=== PATIENT | male | born 1965 | race Caucasian/White ===

== ENCOUNTER 2024-11-14 08:04 | Outpatient (CLI) | payer OTHER, SELFPAY ==
--- NOTE | ~2024-11-14 | US_ITS ---
US abdomen limited INDICATION: Abnormal liver function tests PROCEDURE: Realtime right upper abdominal ultrasound. COMPARISON: No prior studies for comparison. FINDINGS: The pancreas is normal without focal mass or pancreatic ductal dilation. Liver echotexture is increased throughout, consistent with fatty infiltration. Liver is enlarged measuring 17.1 cm. T here is normal directional flow in the portal vein. Gallbladder is surgically absent. Common bile duct measures 6 mm. No sonographic Edgar's sign. IMPRESSION: 1: Hepatomegaly with fatty infiltration of the liver. Reviewed, dictated and finalized at location A.
--- OUTSIDE RECORDS SUMMARY | 2024-11-14 08:12 | XMS_ITS | Clinical Summary ---
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 Gender Identity Not on file Sexual Orientation Not on file Plan of Treatment Health Maintenance Due Date Last Done Comments Hepatitis C Virus (HCV) Screening 1965 TdaP Immunization 1965 Hepatitis B Immunization (1 of 3 - 19+ 3-dose series) 12/25/1983 Colonoscopy 2009 Colorectal Cancer Screening 2009 Cologuard 2014 Immunochemical Fecal Occult Blood 2014 Pneumococcal Immunization (5 0+ years) (1 of 1 - PCV) 2014 Zoster Immunization (1 of 2) 2014 PSA Discussion 12/25/2019 Influenza Immunization (#1) 2024 SARS-COV-2 Immunization ( season) 2024 06/23/2021, 10/24/2020 Respiratory Syncytial Virus (RSV) Immunization (Adult) (1 - 1-dose 75+ series) 12/25/2039 Meningococcal Immunization (ACWY) Aged Out No longer eligible b ased on patient's age to complete this topic Pneumococcal Immunization Combined Aged Out No longer eligible b ased on patient's age to complete this topic Rotavirus Immunization Aged Out No lo nger eligible based on patient's age to complete this topic
--- OUTSIDE RECORDS SUMMARY | 2024-11-14 08:12 | XMS_ITS | Clinical Summary ---
Author Organization [facility] Address [address] [place] [address] Care Team Providers Care Tumbling And Rolling Supervisor Name Role Phone None, Provider MD Primary Care Provider Unavaila ble Allergies No known active allergies Medications fluticasone propionate (FLONASE ALLERGY RELIEF) 50 MCG/ACT nasal spray 2 sprays by Each Nostril route daily. 0.001 g 12/21/2018 Active lidocaine viscous 2 % solution Take 5 ml of solution and dilute in 5 ml of water. Swish, gargle and spit in that order. DO NOT SWALLOW 100 mL 12/21/2018 Active Social History Tobacco Use Types Packs/Day Years Used Date Smoking Tobacco: Never Smokeless Tobacco: Never Alcohol Use Standard Drinks/Week Comments Yes 0 (1 standard drink = 0.6 oz pur e alcohol) socially Sex and Gender Information Value Date Recorded Sex Assigned at Not on file Legal Sex Male 7:01 PM CDT Gender Identity Not on file Sexual Orientation Not on file Last Filed Vital Signs Vital Sign Reading Time Taken Comments Blood Pressure 139/90 12/21/2018 5:25 PM CDT Pulse 102 12/21/2018 5:25 PM CDT Temperature 36.3 C (97.3 F) 12/21/2018 5:25 PM CDT Respiratory Rate 17 12/21/2018 5:25 PM CDT Oxygen Saturation 100% 12/21/2018 5:25 PM CDT Inhaled Oxygen Concentration - - Weight 111.1 kg (245 lb) 12/21/2018 3:30 PM CDT Height 180.3 cm (5' 11 ) 12/21/2018 3:30 PM CDT Body Mass Index 34.17 12/21/2018 3:30 PM CDT Plan of Treatment Health Maintenance Due Date Last Done Comments Colorectal Cancer Screening Colonoscopy (10 Years) 1964 Annual Physical 12/25/1967 Hepatitis C 1982 DTaP, Tdap and Td Vaccines ( 1 - Tdap) 12/25/1983 Zoster Vaccines (1 of 2) 2014 COVID-19 Vaccine (1 - 2023-2 5 season) 2024 Influenza Adult (#1) 2024 Meningococcal B Vaccine Aged Out No l onger eligible based on patient's age to complete this topic Meningococcal Vaccine Aged Out No maru jimmy eligible based on patient's age to complete this topic Pneumococcal Vaccine: Pediat rics (0 to 5 Years) and At-Risk Patients (6 to 64 Years) Aged Out No longer eligible b ased on patient's age to complete this topic RSV Immunizations Under 20 Months Aged Out No longer eligible based on patient's age to complete this topic Insurance [facility] Care Teams Tumbling And Rolling Supervisor Relationship Specialty Start Date End Date None, Provider, PCP - General 12/21/18
== END 2024-11-14 08:05 | disposition home or self-care (01) ==
PROVIDERS: PCP Internal Medicine; Visit Provider Internal Medicine
DX: R94.5 Abnormal results of liver function studies (principal); K76.0 Fatty (change of) liver, not elsewhere classified
CPT/HCPCS: 76705

== ENCOUNTER 2025-01-02 00:19 | Day surgery (SDC) | payer OTHER, SELFPAY ==
[2024-12-26 09:20] VITALS: BMI 32.2
--- OUTSIDE RECORDS SUMMARY | 2025-01-02 00:22 | XMS_ITS | Clinical Summary ---
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
--- OUTSIDE RECORDS SUMMARY | 2025-01-02 00:23 | XMS_ITS | Clinical Summary ---
Author Organization [facility] Address [address] [place] [address] Care Team Providers Care Tire Service Supervisor Name Role Phone None, Provider MD [...] Td Vaccines ( 1 - Tdap) 12/25/1983 Pneumococcal Vaccine: 50+ Ye ars (1 of 1 - PCV) 2014 Zoster Vaccines (1 of 2) 2014 COVID-19 Vaccine (1 - 2023-2 5 season) 2024 Meningococcal B Vaccine Aged Out No l onger eligible based on patient's age to complete this topic Meningococcal Vaccine Aged Out No maru jimmy eligible based on patient's age to complete this topic RSV Immunizations Under 20 Months Aged Out No longer eligible based on patient's age to complete this topic Insurance [facility] Care Teams Tire Service Supervisor Relationship Specialty Start Date End Date None, Provider, PCP - General 12/21/18
[2025-01-02 08:42] VITALS: BP 130/89; PULSE 82; RESP 18; TEMP 36.6; O2SAT 99; BMI 31.5
--- NOTE | 2025-01-02 08:56 | WPDANESEPPF ---
Anes - Initial Pre Proc Eval Procedure: Operation Date: 01/02/25 10:00 Proposed Procedures p Esophagogastroduodenoscopy & Colonoscopy - Kenton Jain MD Date/Time: 01/02/25 08:56 Surgeon: Kenton Jain MD Pre Op Diagnosis: malignant neoplasm of colon Patient Data Age: 59 Gender: M Height: 1.8 m Weight: 102.5 kg Last Vital Signs Temp 36.6 C 01/02/25 08:42 Pulse 82 01/02/25 08:42 Resp 18 01/02/25 08:42 BP 130/89 01/02/25 08:42 Pulse Ox 99 01/02/25 08:42 O2 Del Method Room Air 01/02/25 08:42 Allergies Allergy/AdvReac Type Severity Reaction Status Date / Time No Known Allergies Allergy Verified 01/02/25 08:51 Home Medications Medication Instructions Recorded Confirmed Type diphenhydramine HCl 25 mg capsule 25 mg PO Q6H PRN allergy symptoms 01/27/21 01/02/25 History (Benadryl) esomeprazole magnesium 20 mg 20 mg PO DAILY 01/27/21 01/02/25 History capsule,delayed release (Nexium) Patient hx anesthesia problems: none Family hx anesthesia problems: none Results Review: All pre-operative results and documents have been reviewed as part of the pre-operative evaluation. [facility] Past Medical History Medical History Dyslipidemia Mild intermittent asthma in adult without complication Microscopic hematuria BMI 33.0-33.9,adult Hypertension Elevated fasting glucose BMI 34.0-34.9,adult B12 deficiency Elevated blood pressure reading in office without diagnosis of hypertension Hyperlipidemia BMI 31.0-31.9,adult Family history of pancreatic cancer Encounter to establish care Gout Hernia Acid reflux Gallbladder disorder Asthma Seasonal allergies Surgical History Surgical History History of cholecystectomy Family History Family History Father Diabetes mellitus Enlarged prostate Mother Diabetes mellitus Pancreatic cancer Sibling Diabetes mellitus Grandparent AA (alcohol abuse) Grandparent Asthma Social History Social History Smoking status: Former smoker Tobacco type: cigarettes Alcohol intake: former Substance use: never Substance use type: does not use Anes - Eval Final PreProcedure Day of Procedure 01/02/25 08:56 Patient weight: obese Heart: regular rate and rhythm Lungs: clear to auscultation Airway: Mallampati scale class II Neurological: alert and oriented Last oral intake: >/= 8 hours ASA classification: III Emergent: no Anesthetic plan: proceed Anesthesia type and monitoring: general GIVS and standard monitoring Results Review: All pre-operative results and documents have been reviewed as part of the pre-operative evaluation. Informed Consent: The patient's anesthetic plan and its attendant risks and benefits were discussed with the patient/family/POA. Questions were solicited and answers provided to the satisfaction of the patient/family/POA.
[2025-01-02] MEDS: LACTATED RINGERS 1,000 ML 150 ML IV CONT (09:00)
--- NOTE | 2025-01-02 09:54 | PM.HPGS ---
History of Present Illness History of Present Illness Consent: Risks, benefits, and alternatives have been discussed and questions answered. Patient agrees to proceed with procedure. Chief complaint: malignant neoplasm of colon Narrative: Ron Alvarez is a 59 year old male here for egd and colonoscopy, last one had both was 14 years ago, gerd controlled with nexium Review of Systems Review of Systems: All systems reviewed & are unremarkable except as noted in HPI and below PMFSH Past Medical History Medical History (Updated 01/02/25 @ 09:55 by Kenton Jain MD) Colon cancer screening Dyslipidemia Mild intermittent asthma in adult without complication Microscopic hematuria BMI 33.0-33.9,adult Hypertension Elevated fasting glucose BMI 34.0-34.9,adult B12 deficiency Elevated blood pressure reading in office without diagnosis of hypertension Hyperlipidemia BMI 31.0-31.9,adult Family history of pancreatic cancer Encounter to establish care Gout Hernia Acid reflux Gallbladder disorder Asthma Seasonal allergies Surgical History Surgical History History of cholecystectomy Family History Family History Father Diabetes mellitus Enlarged prostate Mother Diabetes mellitus Pancreatic cancer Sibling Diabetes mellitus Grandparent AA (alcohol abuse) Grandparent Asthma Social History Social History Smoking status: Former smoker Tobacco type: cigarettes Alcohol intake: former Substance use: never Substance use type: does not use Meds Home Medications and Allergies Home Medications Medication Instructions Recorded Confirmed Type diphenhydramine HCl 25 mg capsule 25 mg PO Q6H PRN allergy symptoms 01/27/21 01/02/25 History (Benadryl) esomeprazole magnesium 20 mg 20 mg PO DAILY 01/27/21 01/02/25 History capsule,delayed release (Nexium) Allergies Allergy/AdvReac Type Severity Reaction Status Date / Time No Known Allergies Allergy Verified 01/02/25 08:51 Vital Signs Vital Signs - 24 hr 01/02/25 08:42 Temperature 97.8 F Pulse Rate 82 Respiratory Rate 18 Blood Pressure 130/89 Pulse Oximetry 99 Oxygen Delivery Room Air Exam Const: General: comfortable and no acute distress HENMT: Face/Nose/Sinus: Normal nares present Eyes: General: appearance normal, both eyes and all related structures Neck: Neck: no JVD Resp: Auscultation: clear to auscultation bilaterally Cardio: Rate: regular rate Rhythm: regular rhythm GI: Inspection: non-distended GI Palp: Yes Soft to palpation Skin: General skin exam: normal color Neuro: General: gait normal Speech: normal speech Extrem: General: normal to inspection Psych: Mental Status: mental status grossly normal Assessment and Plan Assessment and plan (1) Acid reflux: Code(s): K21.9 - Gastro-esophageal reflux disease without esophagitis Status: Inactive Assessment and Plan: gerd (2) Colon cancer screening: Code(s): Z12.11 - Encounter for screening for malignant neoplasm of colon Status: Acute Assessment and Plan: colonoscopy
[2025-01-02] MEDS: BENZOCAINE (*SP) 60 ML SPRAY CAN (HURRICAINE) 1 SPRAY MUCOUS MEM (10:02)
--- NOTE | 2025-01-02 10:06 | SUR.OPER ---
EGD end 1006 COLONOSCOPY START 1010
[2025-01-02 10:24] VITALS: BP 105/72; PULSE 76; RESP 20; O2SAT 96
[2025-01-02 10:34] VITALS: BP 107/75; PULSE 70; RESP 18; O2SAT 97
[2025-01-02 10:44] VITALS: BP 122/79; PULSE 68; RESP 18; O2SAT 97
== END 2025-01-02 10:56 | disposition home or self-care (01) ==
PROVIDERS: PCP Internal Medicine; Visit Provider Internal Medicine Gastroenterology
PROC: 0DJ08ZZ Inspection of Upper Intestinal Tract, Via Natural or Artificial Opening Endoscopic (ICD-10-PCS; CPT 45378; principal; 2025-01-02 10:00)
DX: Z12.11 Encounter for screening for malignant neoplasm of colon (principal); K63.5 Polyp of colon; K57.30 Diverticulosis of large intestine without perforation or abscess without bleeding; K64.8 Other hemorrhoids; K21.9 Gastro-esophageal reflux disease without esophagitis; K44.9 Diaphragmatic hernia without obstruction or gangrene; I10 Essential (primary) hypertension; E78.5 Hyperlipidemia, unspecified; J45.909 Unspecified asthma, uncomplicated; E53.8 Deficiency of other specified B group vitamins; R03.0 Elevated blood-pressure reading, without diagnosis of hypertension; K82.9 Disease of gallbladder, unspecified; R31.29 Other microscopic hematuria; R73.01 Impaired fasting glucose; E66.9 Obesity, unspecified; Z68.31 Body mass index [BMI] 31.0-31.9, adult; Z90.49 Acquired absence of other specified parts of digestive tract; Z87.891 Personal history of nicotine dependence; Z80.0 Family history of malignant neoplasm of digestive organs
CPT/HCPCS: 43239; 45385; 88305; J2003; J2704; J7120